=== PATIENT | male | born 1950 | race Caucasian/White ===

== ENCOUNTER 2025-03-24 20:38 | Emergency (ER) | payer MEDICARE ==
[~2025-03-24] VITALS: Ht 172.7 cm; Wt 66.5 kg
[~2025-03-24 20:38] MED LIST: ASPIRIN EC81 MG PO; GLYBURIDE2.5 MG PO; METFORMIN HCL500 MG PO; NAPROXEN375 MG PO; NORCO 5-325 TA1 EACH PO
[2025-03-24 20:53] LABS: BASOPHILS 0.4 % (0.2-1.2); EOSINOPHILS 1.2 % (0.8-7.0); LYMPHOCYTES 31.6 % (21.8-53.1); MCH 28.5 PG (25.7-32.2); MCHC 31.8 g/dL (32.3-36.5); MCV 89.5 fL (79.0-92.2); MONOCYTES 9.8 % (5.3-12.2); NEUTROPHILS 56.8 % (34.0-67.9); RBC 4.49 M/uL (4.63-6.08)
[2025-03-24] MEDS ORDERED: METFORMIN HCL750 MG PO (20:55)
[2025-03-24] MEDS ORDERED: SIMVASTATIN20 MG PO (20:55)
[2025-03-24] MEDS ORDERED: ASPIRIN 81 MG CHEW PO ONE (21:00)
[2025-03-24 21:09] LABS: ALT (SGPT) 28.0 U/L (14-59); AST (SGOT) 16.0 U/L (15-37); GLOMERULAR FILTRATION RATE,EST 89.0 mL/min (>60); PROTEIN, TOTAL 7.4 g/dL (6.4-8.2); UREA NITROGEN 17.0 mg/dL (7-18)
[2025-03-24 23:21] VITALS: BP 140/75
--- NOTE | 2025-03-26 14:16 | EKG ---
[facility] [address] [facility] [place] [address] Signed Sinus rhythm with premature supraventricular complexes and with occasional premature ventricular complexes Otherwise normal ECG Confirmed by Willow Wray DO ([id number]) on 03/26/2025 2:16:08 PM Electronically Signed By: WILLOW WRAY DO 03/26/25 1416 PATIENT NAME: DENA THAKUR JR Electrocardiogram DATE OF : 46 PHYSICIAN: WILLOW WRAY DO REPORT #: [id number] REPORT IS CONFIDENTIAL AND NOT TO BE RELEASED WITHOUT AUTHORIZATION
== END 2025-03-24 23:30 | disposition home or self-care (01) ==
LOC: ED 20:38
PROVIDERS: Internal Medicine
DX: R07.9 Chest pain, unspecified (principal); E11.65 Type 2 diabetes mellitus with hyperglycemia; E78.00 Pure hypercholesterolemia, unspecified; Z79.84 Long term (current) use of oral hypoglycemic drugs; Z79.82 Long term (current) use of aspirin; Z79.899 Other long term (current) drug therapy
CPT/HCPCS: 36415; 71045; 80053; 83735; 84484; 85025; 93005; 93010; A9270